=== PATIENT | female | born 1955 | race Hispanic/Latino ===

== ENCOUNTER 2018-09-16 10:48 | Day surgery (SDC) | payer BC ==
[2018-09-14 14:39] VITALS: BMI 53.1
[~2018-09-16 10:48] MED LIST: Clindamycin 600mg/50ml NS 600 MG/50 ML BAG IVPB ONE; Lidocaine/Epinephrine 1% 1:100000 10 ML IJ ONE
[2018-09-16] MEDS ORDERED: Midazolam 2 MG/2 ML VIAL ONE (14:10)
[2018-09-16] MEDS ORDERED: Propofol 10 mg/ml Inj (20 ML) ONE (14:11)
[2018-09-16] MEDS ORDERED: Lidocaine/Epinephrine 1% 1:100000 10 ML IJ ONE (14:19)
--- NOTE | 2018-09-16 15:15 | PCM.SURG1 ---
Surgeon's Initial Post Op Note - Surgeon's Notes Surgeon: Dr. Mir Sheep Clipper: Dr. Kearns Type of Anesthesia: Local Pre-Operative Diagnosis: infected sebaceous cyst Operative Findings: see operative dictaiton Post-Operative Diagnosis: same Operation Performed: wide and deep excision abd debridement of infected sebaceous cyst Specimen/Specimens Removed: purulent fluid Estimated Blood Loss: EBL {In ML}: 75 Blood Products Given: N/A Drains Used: No Drains Post-Op Condition: Good Date of Surgery/Procedure: 09/16/18 Time of Surgery/Procedure: 15:15
[2018-09-16] MEDS: HYDROmorphone 0.5 mg/0.5 ml ISec IVP PRN ×2 (15:34→16:09)
[2018-09-16 17:06] VITALS: BP 136/50; PULSE 66; RESP 18; TEMP 98; O2SAT 99
--- NOTE | 2018-09-17 01:59 | OP ---
PROCEDURE DATE: 09/16/2018 PREOPERATIVE DIAGNOSIS: Large infected cyst at back. POSTOPERATIVE DIAGNOSIS: Large infected cyst at back. PROCEDURE CARRIED OUT: Excision and drainage of 8 cm infected sebaceus cyst of back. SURGEON: Harry Mir Jr., MD INSOLE AND OUTSOLE SPLITTER: Obinna Kearns D.O. ANESTHESIOLOGIST: Ame. INDICATIONS: The patient is an older middle-age woman with history of diabetes, has a huge abscess on her back. This was incised and drained. The stuff inside evacuated. This was thoroughly irrigated. Hemostasis obtained. The wound was packed open. Blood loss for the procedure is 75 mL. Operation carried out, excision and drainage of 8 cm sebaceus cyst of back. Harry Mir Jr., MD
== END 2018-09-16 17:51 | disposition home or self-care (01) ==
LOC: C.SDS 10:48
PROVIDERS: ATTEND Surgery Vascular Surgery
DX: L72.3 Sebaceous cyst (principal); E11.9 Type 2 diabetes mellitus without complications; I10 Essential (primary) hypertension; E78.5 Hyperlipidemia, unspecified; J45.909 Unspecified asthma, uncomplicated; E03.9 Hypothyroidism, unspecified
CPT/HCPCS: 10060; 82948; J1170; J2250; J2704; J3010